=== PATIENT | female | born 1965 | race Caucasian/White ===

== ENCOUNTER 2016-10-15 11:13 | Inpatient (IN) ==
--- NOTE | 2016-10-15 11:27 | Discharge Summary ---
Date of Encounter: 10/18/16 Time of Encounter: 06:27 - Discharge Diagnosis (1) Morbid obesity with BMI of 45.0-49.9, adult Priority: Secondary Status: Chronic (2) Hypertension Priority: Secondary Status: Chronic Qualifiers: Hypertension type: unspecified secondary hypertension Qualified Code(s): I15.9 - Secondary hypertension, unspecified; I15 - Secondary hypertension (3) Arthritis of knee, right Priority: Primary Status: Acute (4) Hyperlipidemia Priority: Secondary Status: Chronic Qualifiers: Hyperlipidemia type: unspecified Qualified Code(s): E78.5 - Hyperlipidemia , unspecified (5) Obstructive sleep apnea Priority: Secondary Status: Chronic - Discharge Medications Prescriptions: OxyCODONE/APAP 5/325 [Percocet 5/325 MG] 1 - 2 each PO Q6HR PRN #30 tablet PRN Reason: Pain Home Medications: Pregabalin [Lyrica] 300 mg PO BID 02/22/15 [History] Lisinopril-HCTZ 10-12.5 [Prinzide 10-12.5] 1 tab PO DAILY 09/26/15 [History] Aspirin Enteric Coated [Aspirin EC] 325 mg PO BID #20 tablet. 10/15/16 [Rx] Meloxicam [Mobic] 7.5 mg PO DAILY 10/15/16 [History] OxyCODONE/APAP 5/325 [Percocet 5/325 MG] 1 - 2 each PO Q6HR PRN #30 tablet 10/18 [Rx] Allergies/Adverse Reactions: Allergies No Known Allergies Allergy (Verified 10/15/16 12:16) Primary care physician: Genny Hyatt CNP - Patient Status Disposition: Transfer Inpatient Rehab Fac Condition: Good Functional capacity at discharge: uses cane/walker Overall status at discharge: patient is progressing back to baseline - Discharge Instructions Follow Up With: Genny Hyatt CNP [Primary Care Provider] - - Hospital Course Hospital course: Ms. Ponce is a 51 year old female The patient had an uneventful postoperative course. They received antibiotics and physical therapy and were discharged in stable condition. There will follow -up in the office in 2 weeks. Aspirin DVT prophylaxis patient with calf Tenderness we will obtain Doppler before discharge - Time Spent with Patient Total time spent providing and/or coordinating discharge services:
[2016-10-15] MEDS ORDERED: CeFAZolin Pre 3,000 MG/100 ML 3,000 MG/100 ML BAG IVPB ONE (12:04)
[2016-10-15] MEDS ORDERED: Lidocaine -MPF 1% 2 ML VIAL ID ONE (12:04)
[2016-10-15] MEDS: Ringers Solution, Lactated 1,000 ML IVC SCH ×2 (12:30→17:35)
[2016-10-15 12:58] LABS: Hematocrit 23.5 % (35.3-44.9); Hemoglobin 7.5 g/dL (11.5-15.4)
--- NOTE | 2016-10-15 13:05 | History & Physical Report ---
Date of Encounter: 10/15/16 Time of Encounter: 13:04 24 Hour HP Update - Instructions Instructions: If the History and Physical is less than 30 days old and was completed prior to A.M. admission and or procedure and has NOT been updated on calendar day of procedure please complete this update prior to performing procedure. - Update Patient reports changes in Medical Condition: No Changes in examination, assessment, or condition: No Changes in Medication: No Preop tests/diagnostics Reviewed: Yes Surgery Remains Indicated: Yes Consent for Planned Operative Procedure(s) Verified: Yes - Pre-Operative Checklist Preoperative Checklist Indicated: No Prophylactic Antibiotic Ordered: Yes Is VTE Prophylaxis Indicated?: Yes
--- NOTE | 2016-10-15 13:17 | Anesthesia Evaluation PreOp ---
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 10/15/16 [Rx] Meloxicam [Mobic] 7.5 mg PO DAILY 10/15/16 [History] OxyCODONE Immed Rel [Roxicodone 5 MG] 5 mg PO Q4HR PRN #30 tablet 10/15/16 [Rx] Allergies No Known Allergies Allergy (Verified 10/15/16 12:16) - Meds/Allergy Pre-op Review Medications Reviewed: Yes Allergies Reviewed: Yes Beta Blockers on Current Med List: No Anesthesia Results - Labs 10/15/16 12:45 - Imaging EKG: report reviewed, image reviewed (SR; baseline artifact) Anesthesia Exam Last Vital Signs Temp 98.4 F 10/15/16 12:14 Pulse 82 10/15/16 12:14 Resp 18 10/15/16 12:14 BP 115/68 10/15/16 12:14 Pulse Ox 96 10/15/16 12:14 Weight: 142 kg NPO (# of Hours): >> 8 hrs - HEENT Pupil (Motor): Pupils equal, EOMI Mallampati: II Teeth: Poor dentition Oral Opening: Greater than 3 - SALES PERFORMANCE MANAGER LOC: Oriented SALES PERFORMANCE MANAGER Motor: Normal RUE, Normal LUE, Normal RLE, Normal LLE, Normal Face - Cardiac Rhythm: Regular Murmur: None - Pulmonary Breath Sounds: bilateral Clear Respiratory Effort: Symmetrical Anesthesia Assess/Plan ASA Score: 3 Modified Tamara Scale for Level of Consciousness: Cooperative, oriented, and tranquil Anesthetic Plan: General, Regional Monitoring Plan: Standard Monitors Recovery Plan: PACU
[2016-10-15] MEDS ORDERED: *HR* FentaNYL (PF) 100 MCG/2 ML VIAL ONE ×2 (13:26→14:42)
[2016-10-15] MEDS ORDERED: *HR* Midazolam HCl 2 MG/2 ML VIAL ONE (13:26)
[2016-10-15] MEDS ORDERED: Ondansetron 4 MG/2 ML VIAL ONE (13:27)
[2016-10-15] MEDS ORDERED: *HR* Propofol 200 MG/20 ML VIAL IVP ONE (13:27)
[2016-10-15] MEDS ORDERED: Lidocaine -MPF 2% 2 ML VIAL ONE (13:27)
[2016-10-15] MEDS ORDERED: *HR* Succinylcholine 200 MG/10 ML VIAL IVP ONE (13:27)
[2016-10-15] MEDS ORDERED: Dexamethasone 4 MG/ML VIAL ONE (13:27)
[2016-10-15] MEDS ORDERED: Lidocaine -MPF 4% 5 ML AMPUL ONE (13:30)
[2016-10-15] MEDS ORDERED: ROPIVACAINE HCL/PF 0.5% 30 ML VIAL ONE ×2 (13:40→17:03)
[2016-10-15] MEDS ORDERED: Bupivacaine/Clonidine Syringe 1 EACH SYRINGE ONE ×2 (13:41→17:22)
[2016-10-15] MEDS ORDERED: *HR* Labetalol 20 MG/4 ML SYRINGE IVP PRN (14:38)
[2016-10-15] MEDS ORDERED: Dexamethasone 4 MG/ML VIAL IVP ONE (14:38)
[2016-10-15] MEDS ORDERED: Ondansetron 4 MG/2 ML VIAL IVP ONE (14:38)
[2016-10-15] MEDS ORDERED: Ketorolac 15 MG/ML VIAL IVP ONE (14:38)
--- NOTE | 2016-10-15 15:00 | Anesthesia Procedures ---
Date of Encounter: 10/15/16 Time of Encounter: 13:40 Procedures: Anesthesia - Nerve Block Procedure Date: 10/15/16 Time: 13:40 Allergies/Adv Reactions: nka Surgical Procedure: Right tka Checklist: Correct Patient Identifier, Correct procedure, History checked Correct side: Right Blood Thinner: No Monitor Applied: EKG, BP, Pulse Oximetry Supplemental Oxygen via Nasal Cannula (L/min): 2 Sedation: Versed (mg): 2 Sedation: Fentanyl (mcg): 100 Indication: Post Op Analgesia (per dr. lozano) Pre-op Neuro Deficits: No Block Type: Femoral (30cc 0.5% ropivicaine), Other (ipack 20cc 0.25% bupivicaine ) Catheter placed: No Sterile Technique: Yes Ultrasound used: Yes Anatomy identified: Yes Visual spread of Local: Yes Neuro Stimulation: Yes Nerve Stimulator Range: 0.2 - 0.4 mA Blood on Needle Aspiration: No Smooth Injection of Local: Yes Pain with Injection of Local: No Prep: Chlorhexadine Needle: 22 x 50 mm Stimuplex (femoral), 21 x 100 mm Stimuplex (ipack) Local: 0.25% Bupivicaine w/Clonidine 20 mcg/cc (20cc for ipack), Ropivacaine Volume (cc): 30cc 0.5% for femoral Number of Attempts: 1 Complications: None/effective block Vitals: Vital Signs/O2 Sat/Glucose, Most Recent Temp Pulse Resp BP Pulse Ox 98.4 F 82 18 115/68 96 10/15/16 12:14 10/15/16 12:14 10/15/16 12:14 10/15/16 12:14 10/15/16 12:14
[2016-10-15] MEDS ORDERED: *HR* Morphine 10 MG/ML VIAL ONE (15:01)
--- NOTE | 2016-10-15 15:28 | Orthopedic Operative Note ---
Date of procedure: 10/15/16 Pre-op diagnosis: right knee arthritis Post-op diagnosis: same Procedure: Procedure: Right Total knee replacement Estimated blood loss: 400 cc Hardware: Metal and polyethylene replacement: Biomet Femur: 70, 18 x 120 Tibia: 75, 16 x 80 Jessy insert: 10 Patella: 40 Exam Under anesthesia: Full flexion and extension no instability Procedural Notes: Grade 4 arthritic changes medial compartment patellofemoral joint. Operative procedure: The patient was brought to the operating room and placed on the operating room table. After general anesthesia was administered the operative knee was examined. Findings were noted in the exam under anesthesia. The operative extremity was prepped and draped in sterile surgical fashion. The patient received IV antibiotics prior to skin incision. A standard midline incision was made centered over the patella. The incision was made through the skin and subcutaneous tissue. A medial parapatellar tendon approach was performed. Care was taken to preserve tissue along the medial aspect of the patella. And to protect the patella tendon. The deep MCL was released off the medial tibia. The infra patella fat pad was excised. Knee was brought into flexion. Patient noted to have grade 4 arthritic changes medial compartment and patellofemoral joint. The entry hole was made for the intramedullary femoral guide. The guide was seated in 6 degrees of valgus. Anterior cut was made followed by the distal cut. The PCL the medial and the lateral menisci were excised. The tibia was subluxed forward. The entry hole was made for the intramedullary tibial guide. Guide was seated to resect 2 mm off the more abnormal side. The knee was brought into flexion the distal femur was sized to a 70 The femur was first reamed to a 18 x 120 The femoral guide was seated, the anterior cut was made followed by the posterior condylar cut, followed by the chamfer cuts. The finishing guide was seated the box cut was made. Trial had good fit and fixation The tibia was sized to a an 75 The tibia was first reamed Extina by 80 Trial reduction revealed full extension no varus valgus instability with the appropriate 10 insert. The patella was everted and cut was made at the level of the insertion of the quadriceps and patella tendon. The patella was sized to a 40 the guide was seated and the lug holes are drilled. Trial reduction revealed excellent patella tracking. All trial components were removed all bony surfaces were irrigated. Components were assembled on the back table. The femur was cemented first followed by the tibia. The 10 Jessy was seated and secured. The knee was brought into full extension. The patella was cemented and held in place with the patellar holding clamp. After the cement had hardened, the knee sat for 2 minutes with a Betadine saline solution. The knee was then irrigated out with 2 L of pulse irrigation. The extensor mechanism was closed with #2 FiberWire suture and #2 PDS suture. The subcutaneous tissue was then irrigated and closed deep with #1 PDS suture superficially with 0 PDS suture and skin was closed with skin arden The patient was then placed in a sterile dressing and a postoperative brace extubated and transferred to recovery room in stable condition. Anesthesia: SEB Surgeon: Akira Unger Condition: stable Disposition: PACU
[2016-10-15] MEDS: *HR* Morphine 2 MG/ML SYRINGE IVP PRN ×2 (15:37→15:46)
[2016-10-15] MEDS: *HR* HYDROmorphone (PF) 1 MG/ML SYRINGE IVP PRN ×3 (15:57→18:35)
[2016-10-15] MEDS ORDERED: Gabapentin 300 MG CAPSULE PO STA (16:36)
[2016-10-15] MEDS ORDERED: Acetaminophen IV 1,000 MG/100 ML INFUS..BTL IVPB ONE (16:36)
[2016-10-15] MEDS ORDERED: cloNIDine HCl 0.1 MG TABLET PO ONE (16:37)
[2016-10-15] MEDS ORDERED: *HR* HYDROmorphone (PF) 1 MG/ML SYRINGE ONE (16:38)
[2016-10-15] MEDS ORDERED: Acetaminophen IV 1,000 MG/100 ML INFUS..BTL ONE (16:38)
[2016-10-15] MEDS ORDERED: cloNIDine HCl 0.1 MG TABLET ONE (16:38)
[2016-10-15] MEDS ORDERED: *HR* HYDROmorphone (PF) 1 MG/ML SYRINGE IVP PRN (16:38)
[2016-10-15] MEDS ORDERED: Gabapentin 300 MG CAPSULE ONE (16:41)
[2016-10-15 16:45] LABS: Hematocrit 39.1 % (35.3-44.9); Hemoglobin 12.7 g/dL (11.5-15.4)
[2016-10-15] MEDS ORDERED: Tetracaine/PF 20 MG/2 ML AMPUL ONE ×2 (17:11→17:21)
--- NOTE | 2016-10-15 17:53 | Anesthesia Procedures ---
Date of Encounter: 10/15/16 Time of Encounter: 17:46 Procedures: Anesthesia - Nerve Block Procedure Date: 10/15/16 Time: 17:46 Allergies/Adv Reactions: Allergies No Known Allergies Allergy (Verified 10/15/16 12:16) Pre-op Diagnosis: right total knee Checklist: Correct Patient Identifier, Correct procedure, History checked Correct side: Right Blood Thinner: No Monitor Applied: EKG, BP, Pulse Oximetry Supplemental Oxygen via Nasal Cannula (L/min): 2 Indication: Post Op Analgesia Pre-op Neuro Deficits: No Block Type: Femoral Catheter placed: No Sterile Technique: Yes Ultrasound used: Yes Anatomy identified: Yes Visual spread of Local: Yes Neuro Stimulation: No Blood on Needle Aspiration: No Smooth Injection of Local: Yes Pain with Injection of Local: No Prep: Chlorhexadine Needle: 22 x 50 mm Stimuplex Local: 0.25% Bupivicaine w/Clonidine 20 mcg/cc (20cc), Ropivacaine (30cc) Volume (cc): 50 Number of Attempts: 1 Complications: None/effective block Vitals: by continuous improvement intern Comments: Called to bedside to evaluate for PACU discharge. Patient states she still has pain 10/10 on the front of knee and behind. Per BEEF GRINDER, patient has already had 20mg morphine, 1.5mg dilaudid, gabapentin, toradol, and ofirmev. After discussion with Dr Gonzalez and the patient, it was decided to do a rescue femoral nerve block. Sterile prep and drape, ultrasound guidance, 50ml of aforementioned fluid injected after negative aspiration. Post procedure patient still had posterior knee and calf pain and anterior pain below the level of patella, but the anterior knee pain was already decreasing from 10 to 7 and patient was sleeping in apparent comfort.
--- NOTE | 2016-10-15 17:54 | Anesthesia Evaluation Post Op ---
Date of Encounter: 10/15/16 Time of Encounter: 17:53 - Vital Signs Vital Signs: Vital Signs/O2 Sat, Most Current Temp Pulse Resp BP Pulse Ox 98.3 F 77 12 128/79 93 10/15/16 17:41 10/15/16 17:41 10/15/16 17:41 10/15/16 17:41 10/15/16 17:41 - Lungs Lungs: Clear Ascult./Percussion - Airway Airway: Non-obstructed - Cardiovascular Regular Rate - Mental Status Mental Status: Alert & Oriented, Answers Appropriately - Pain Pain Scale: 7 (see procedure note for rescue fem block) - Nausea Vomiting Nausea Vomiting: Not Present - Hydration Hydration: NPO, Has not voided - Discharge PostOp Status: Transfer Patient to floor
[2016-10-15] MEDS ORDERED: *HR* OxyCODONE Immed Rel 5 MG TABLET PO PRN (17:59)
[2016-10-15] MEDS ORDERED: MOM Conc 10 ML UD.LIQ PO PRN (17:59)
[2016-10-15] MEDS ORDERED: Sennosides 8.6 MG TABLET PO PRN (17:59)
[2016-10-15] MEDS ORDERED: Ondansetron 4 MG/2 ML VIAL IVP PRN (17:59)
[2016-10-15] MEDS ORDERED: Naloxone 0.4 MG/ML INJ IVP PRN (17:59)
[2016-10-15] MEDS ORDERED: Ringers Solution, Lactated 1,000 ML IVC SCH (17:59)
[2016-10-15] MEDS ORDERED: Temazepam 15 MG CAPSULE PO PRN (17:59)
[2016-10-15] MEDS ORDERED: *HR* Enoxaparin 30 MG/0.3 ML SYRINGE SQ SCH (18:00)
[2016-10-15] MEDS: *HR* Enoxaparin 30 MG/0.3 ML SYRINGE SQ SCH (18:35)
[2016-10-15] MEDS: Pregabalin 75 MG CAPSULE PO SCH (20:12)
[2016-10-15] MEDS: *HR* OxyCODONE Immed Rel 5 MG TABLET PO PRN (20:16)
[2016-10-15] MEDS: ceFAZolin 3,000 MG in D5% in Water 100 ML IVPB SCH (21:57)
--- NOTE | 2016-10-16 02:10 | Orthopedics Progress Note ---
Date of Encounter: 10/16/16 Time of Encounter: 02:09 Subjective Principal diagnosis: Status post total knee arthroplasty Interval history: The patient is without complaints. Afebrile vital signs are stable. Incision is clean dry and intact. Neurovascularly intact with regard to bilateral lower extremities. Fires all lower extremity motor groups. Assessment :stable. Plan mobilize ,continue analgesics, discharge planning, rehabilitation today. Objective Vital signs: Vital Signs Temp Pulse Resp BP Pulse Ox 10/15/16 22:02 98.9 F 90 18 105/64 92 10/15/16 20:00 98 F 89 17 126/73 90 10/15/16 19:20 98.1 F 94 14 129/76 88 10/15/16 18:32 98.4 F 88 14 138/83 95 10/15/16 18:01 98 F 87 14 126/75 94 10/15/16 17:41 98.3 F 77 12 128/79 93 10/15/16 17:31 98.3 F 87 12 152/92 93 10/15/16 17:21 80 12 123/50 94 10/15/16 17:11 82 18 139/70 96 10/15/16 17:01 97.5 F L 85 18 149/88 96 10/15/16 16:51 80 18 157/80 91 10/15/16 16:41 92 14 160/89 96 10/15/16 16:31 97.5 F L 83 18 149/88 95 10/15/16 16:21 84 16 162/88 97 10/15/16 16:11 85 16 161/95 95 10/15/16 16:01 97.8 F 83 18 151/94 96 10/15/16 15:51 82 20 139/90 98 10/15/16 15:41 81 20 151/64 99 10/15/16 15:31 97.8 F 79 22 122/70 99 10/15/16 12:14 98.4 F 82 18 115/68 96 10/15/16 11:40 98.4 F 82 18 115/68 96 Intake and Output 10/15/16 10/15/16 10/16/16 15:59 23:59 07:59 Intake Total 100 / 100 1840 / 1840 1000 / 1000 Output Total 400 / 400 200 / 200 200 / 200 Balance -300 / -300 1640 / 1640 800 / 800 Intake: IV Fluids 100 / 100 1000 / 1000 Lactated Ringers 1,000 ML 1000 / 1000 @ 25 mls/hr IVC .Q24H TETE Rx#:[id number] Ancef Premix 3,000 MG/100 100 / 100 ML 3,000 mg In 100 ml @ 200 mls/hr IVPB PREOP ONE Rx#:[id number] Oral 840 / 840 1000 / 1000 Output: Urine 200 / 200 200 / 200 Estimated Blood Loss 400 / 400 Other: Meal Dinner Percent of Meal Consumed 100% # Voids 1 Weight 142.428 kg - Labs CBC & BMP: 10/15/16 16:32 - VTE Documentation of Mechanical Device: Venous foot pump, device Consult Discharge Plan - Plan Referrals: Genny Hyatt RN [facility] [Primary Care Provider] -
[2016-10-16] MEDS: *HR* OxyCODONE Immed Rel 5 MG TABLET PO PRN ×3 (04:14→18:40)
[2016-10-16 05:47] LABS: Hemoglobin 11.3 g/dL (11.5-15.4)
[2016-10-16] MEDS: *HR* HYDROmorphone (PF) 1 MG/ML SYRINGE IVP PRN ×2 (05:53→21:46)
[2016-10-16] MEDS: *HR* Enoxaparin 30 MG/0.3 ML SYRINGE SQ SCH ×2 (05:57→17:55)
[2016-10-16] MEDS: ceFAZolin 3,000 MG in D5% in Water 100 ML IVPB SCH (05:57)
[2016-10-16 06:04] LABS: BUN/Creatinine Ratio 21 (6-26); Blood Urea Nitrogen 18 mg/dL (7-20); Calcium 8.8 mg/dL (8.6-10.8); Carbon Dioxide 23 mEq/L (19-29); Chloride 100 mEq/L (98-109); Glucose 135 mg/dL (70-99); Osmolality,Calculated 280 (280-300); Potassium 4.1 mEq/L (3.5-4.5); Sodium 133 mEq/L (136-145); eGFR For African Americans > 60 (> 60); eGFR For Non-African Americans > 60 (> 60)
[2016-10-16] MEDS: Pregabalin 75 MG CAPSULE PO SCH ×2 (09:44→20:36)
[2016-10-17] MEDS: *HR* HYDROmorphone (PF) 1 MG/ML SYRINGE IVP PRN ×6 (02:38→21:31)
[2016-10-17 04:03] LABS: Hematocrit 30.4 % (35.3-44.9); Hemoglobin 10.3 g/dL (11.5-15.4)
[2016-10-17] MEDS: *HR* OxyCODONE Immed Rel 5 MG TABLET PO PRN ×4 (04:11→19:56)
[2016-10-17 04:12] LABS: BUN/Creatinine Ratio 26 (6-26); Blood Urea Nitrogen 23 mg/dL (7-20); Calcium 8.6 mg/dL (8.6-10.8); Carbon Dioxide 23 mEq/L (19-29); Chloride 99 mEq/L (98-109); Glucose 124 mg/dL (70-99); Osmolality,Calculated 281 (280-300); Potassium 3.8 mEq/L (3.5-4.5); Sodium 133 mEq/L (136-145); eGFR For African Americans > 60 (> 60); eGFR For Non-African Americans > 60 (> 60)
[2016-10-17] MEDS: *HR* Enoxaparin 30 MG/0.3 ML SYRINGE SQ SCH ×2 (06:17→17:10)
[2016-10-17] MEDS: Pregabalin 75 MG CAPSULE PO SCH ×2 (09:14→19:48)
--- NOTE | 2016-10-17 20:42 | Orthopedics Progress Note ---
Date of Encounter: 10/17/16 Time of Encounter: 20:42 Subjective Principal diagnosis: Status post total knee arthroplasty Interval history: The patient is without complaints. Afebrile vital signs are stable. Incision is clean dry and intact. Neurovascularly intact with regard to bilateral lower extremities. Fires all lower extremity motor groups. Assessment :stable. Plan mobilize ,continue analgesics, discharge in a.m. October 18. Objective Vital signs: Vital Signs Temp Pulse Resp BP Pulse Ox 10/17/16 19:52 99 F 88 18 131/80 99 10/17/16 14:51 98.7 F 80 18 130/85 93 10/17/16 11:43 97.6 F 93 18 143/82 98 10/17/16 06:15 97.8 F 82 18 134/78 93 10/17/16 00:00 98.0 F 80 18 135/80 100 Intake and Output 10/17/16 10/17/16 10/17/16 07:59 15:59 23:59 Intake Total 1200 / 1200 720 / 720 120 / 120 Output Total 500 / 500 Balance 700 / 700 720 / 720 120 / 120 Intake: Oral 1200 / 1200 720 / 720 120 / 120 Output: Urine 500 / 500 Other: Meal Lunch Dinner Percent of Meal Consumed 75% 75% # Voids 2 1 Weight 143.1 kg Patient Weight 10/17/16 23:59 Weight 143.1 kg - Labs CBC & BMP: 10/17/16 03:50 10/17/16 03:50 Labs: Abnormal lab results Hgb 10.3 g/dL (11.5-15.4) L 10/17/16 03:50 Hct 30.4 % (35.3-44.9) L 10/17/16 03:50 Sodium 133 mEq/L (136-145) L 10/17/16 03:50 BUN 23 mg/dL (7-20) H 10/17/16 03:50 Glucose 124 mg/dL (70-99) H 10/17/16 03:50 - VTE Documentation of Mechanical Device: Venous foot pump, device Consult Discharge Plan - Plan Referrals: Genny Hyatt, STEREOTYPER HELPER [Primary Care Provider] -
[2016-10-18] MEDS: *HR* OxyCODONE Immed Rel 5 MG TABLET PO PRN (00:09)
[2016-10-18] MEDS ORDERED: *HR* OxyCODONE/APAP 5/325 TABLET PO PRN (02:58)
[2016-10-18] MEDS: *HR* OxyCODONE/APAP 5/325 TABLET PO PRN ×3 (04:37→14:14)
[2016-10-18] MEDS: *HR* Enoxaparin 30 MG/0.3 ML SYRINGE SQ SCH (06:01)
[2016-10-18] MEDS: *HR* HYDROmorphone (PF) 1 MG/ML SYRINGE IVP PRN ×2 (06:02→08:09)
--- NOTE | 2016-10-18 06:30 | Orthopedics Progress Note ---
Date of Encounter: 10/18/16 Time of Encounter: 06:29 - Assessment and Plan (1) Morbid obesity with BMI of 45.0-49.9, adult Current Visit: Yes Status: Chronic (2) Hypertension Current Visit: Yes Status: Chronic Qualifiers: Hypertension type: unspecified secondary hypertension Qualified Code(s): I15.9 - Secondary hypertension, unspecified; I15 - Secondary hypertension (3) Arthritis of knee, right Current Visit: Yes Status: Acute (4) Hyperlipidemia Current Visit: Yes Status: Chronic Qualifiers: Hyperlipidemia type: unspecified Qualified Code(s): E78.5 - Hyperlipidemia , unspecified (5) Obstructive sleep apnea Current Visit: Yes Status: Chronic Subjective Principal diagnosis: Status post total knee arthroplasty Interval history: Patient was seen this morning doing well without complaints. Afebrile vital signs stable. Operative extremity: Neurovascularly intact Dressing clean dry and intact Calves tender Assessment and plan: Continue with postoperative care Doppler before discharge hematocrit 30 for discharge today Objective Vital signs: Vital Signs Temp Pulse Resp BP Pulse Ox 10/18/16 00:14 98.3 F 89 16 125/61 99 10/17/16 19:52 99 F 88 18 131/80 99 10/17/16 14:51 98.7 F 80 18 130/85 93 10/17/16 11:43 97.6 F 93 18 143/82 98 Intake and Output 10/17/16 10/17/16 10/18/16 15:59 23:59 07:59 Intake Total 720 / 720 620 / 620 1050 / 1050 Balance 720 / 720 620 / 620 1050 / 1050 Intake: Oral 720 / 720 620 / 620 1050 / 1050 Other: Meal Lunch Dinner Percent of Meal Consumed 75% 75% # Voids 2 1 1 - Labs CBC & BMP: 10/17/16 03:50 10/17/16 03:50 Labs: Abnormal lab results Hgb 10.3 g/dL (11.5-15.4) L 10/17/16 03:50 Hct 30.4 % (35.3-44.9) L 10/17/16 03:50 Sodium 133 mEq/L (136-145) L 10/17/16 03:50 BUN 23 mg/dL (7-20) H 10/17/16 03:50 Glucose 124 mg/dL (70-99) H 10/17/16 03:50 - VTE Documentation of Mechanical Device: Venous foot pump, device Consult Discharge Plan - Plan Referrals: Genny Hyatt UNIX ENGINEER [Primary Care Provider] - Prescriptions: OxyCODONE/APAP 5/325 [Percocet 5/325 MG] 1 - 2 each PO Q6HR PRN #30 tablet PRN Reason: Pain
[2016-10-18] MEDS: Pregabalin 75 MG CAPSULE PO SCH (09:56)
[2016-10-18 11:33] VITALS: BP 103/66
--- NOTE | 2016-10-19 19:30 | Venous Imaging Report ---
LE Venous Duplex Patient Name:Alexia Ponce Order Number:[id number] Procedure Date:10/18/2016 Date:1965Age:51 yrs Gender:Female Location:[facility] Room #: [id number] Senior Mobile Web Developer:WENDY HanksT, RDCS Referring MD:Akira Unger MD application chemist:Genny Hyatt, MANAGER CARGO Reading MD:Ron Ferguson MD Primary Indications:swelling Secondary Indications: Risk Factors Yes/No Hx of DVT No Impressions: Right lower extremity: normal superficial and deep exam. Findings Venous Duplex Results: Right: Venous imaging of the lower extremity reveals full patency and normal vessel compressibility of the right distal iliac, right common femoral, right superficial femoral, right popliteal, right posterior tibial, right anterior tibial, right peroneal, right saphenofemoral junction, right great saphenous and right lesser saphenous. Doppler signals in the evaluated veins were normal. Left: Venous imaging of the lower extremity reveals full patency and normal vessel compressibility of the left common femoral. Doppler signals in the evaluated veins were normal. Lower Extremity Venous Duplex Side Vein Compress Spontaneous Flow Augment Diameter (cm) Depth (cm) Right Distal Iliac Normal Yes Phasic Yes Right Common Femoral Normal Yes Phasic Yes Right Superficial Femoral Normal Yes Phasic Yes Right Popliteal Normal Yes Phasic Yes Right Posterior Tibial Normal Yes Phasic Yes Right Anterior Tibial Normal Yes Phasic Yes Right Peroneal Normal Yes Phasic Yes Right Saphenofemoral Junction Normal Yes Phasic Yes Right Great Saphenous Normal Yes Phasic Yes Right Lesser Saphenous Normal Yes Phasic Yes Left Common Femoral Normal Yes Phasic Yes Updated by Ron Ferguson MD on 10/19/2016 7:24:20 PM electronically signed on 10/19/2016 7:24:32 PM with status of Final
== END 2016-10-18 14:59 | DRG 470 ==
LOC: SAMDAY 11:13 → 3NENU 17:55
PROVIDERS: ADMIT Orthopaedic Surgery; ATTEND Orthopaedic Surgery